=== PATIENT | female | born 1935 | race Asian ===

== ENCOUNTER 2018-07-08 07:01 | Day surgery (SDC) | payer MEDICARE, OTHER ==
[~2018-07-08] VITALS: Ht 157.5 cm; Wt 71.2 kg
[2018-07-08] VITALS (15 sets, daily range): BP systolic 144–164; BP diastolic 63–76; PULSE 54–62; RESP 16–20; Ht 157.5 cm; Wt 71.2 kg
[2018-07-08] MEDS ORDERED: OLME40TA13 PO (07:44)
[2018-07-08] MEDS ORDERED: ASPI81TA52 PO (07:44)
[2018-07-08] MEDS ORDERED: PRAV20TA63 PO (07:48)
[2018-07-08] MEDS ORDERED: EZET10TA31 PO (07:48)
[2018-07-08] MEDS ORDERED: MECL-77 PO (07:49)
[2018-07-08] MEDS ORDERED: MONT10TA24 PO (07:49)
[2018-07-08] MEDS ORDERED: NITR0.4T39 SL (07:49)
[2018-07-08] MEDS ORDERED: ALBU8.5H8 INH (07:50)
[2018-07-08] MEDS ORDERED: DIAZEPAM 5 MG TAB PO SCH (08:00)
[2018-07-08] MEDS ORDERED: SOD CHLORIDE 0.45% 1,000 ML IV SCH (08:00)
[2018-07-08] MEDS ORDERED: FAMOTIDINE 20 MG TAB PO SCH (08:00)
[2018-07-08] MEDS ORDERED: DIPHENHYDRAMINE 50 MG CAP PO SCH (08:00)
[2018-07-08] MEDS ORDERED: FENTAnyl 50 MCG/ML VIAL ONE (09:25)
[2018-07-08] MEDS ORDERED: VERAPAMIL 5 MG INJ ONE (09:25)
[2018-07-08] MEDS ORDERED: HEPARIN 1000 UNITS/ML 10 ML INJ ONE (09:25)
[2018-07-08] MEDS ORDERED: MIDAZOLAM 1 MG/ML 2 ML INJ ONE (09:25)
[2018-07-08] MEDS ORDERED: NITROGLYCERIN (IC) 100 MCG/ML INJ ONE (09:26)
[2018-07-08] MEDS ORDERED: BIVALIRUDIN 250 MG/50 ML NS BAG IVPB ONE (10:20)
[2018-07-08] MEDS ORDERED: ADENOSINE 90 MG INJ ONE (10:20)
[2018-07-08] MEDS ORDERED: IODIXANOL LOCM 100 ML BTL ONE (10:27)
[2018-07-08] MEDS ORDERED: LIDOCAINE 1% (MDV) 20 ML INJ ONE (10:27)
[2018-07-08] MEDS ORDERED: SOD CHLORIDE 0.9% 1,000 ML IV SCH (10:33)
--- NOTE | 2018-07-08 10:33 | SIPON ---
Date/Time of Note Date/Time of Note DATE: 07/08/18 TIME: 10:30 Operative Report Preoperative Diagnosis 1.abnl mpi Postoperative Diagnosis 1.non-obstructive cad Operation/Procedure Performed 1.[facility] 2.[facility] Surgeon see signature line social worker assistant 1.[place]alo Anesthesia: moderate sedation Estimated blood loss: minimal Transfusion Required none Specimen none Grafts/Implants none Complications none MARYLOU FOSTER Jul 08, 2018 10:33
[2018-07-08] MEDS ORDERED: ONDANSETRON 4 MG INJ IV PRN (11:00)
[2018-07-08] MEDS ORDERED: ACETAMINOPHEN 325 MG TAB PO PRN (11:00)
[2018-07-08] MEDS ORDERED: AL HYDROX/MG HYDROX/SIMETH 30 ML CUP PO PRN (11:00)
[2018-07-08] MEDS ORDERED: morphine 2 MG INJ IV PRN (11:00)
--- NOTE | 2018-07-08 17:16 | CARRPT ---
DATE OF PROCEDURE: 07/08/2018 TYPE OF PROCEDURES: 1. Left heart catheterization. 2. Coronary angiography. 3. Measurement of left ventricular end-diastolic pressure. 4. Fractional flow reserve performed in circumflex. 5. Moderate conscious sedation. ATTENDING PHYSICIAN: Marylou Corona MD REFERRING PHYSICIAN: Darrell Bansal MD INDICATION: Chest pain refractory to medical therapy, positive stress test findings for ischemia. TYPE OF ANESTHESIA: Conscious and local. BRIEF HISTORY: Ms. Christianson is an 83-year-old female with history of hypertension, dyslipidemia, no nobstructive coronary artery disease who initially presented with complaints of substernal chest pain . She underwent cardiac stress test revealing positive anterolateral ischemia. Given these findings , the patient was referred for and presents today to undergo left heart catheterization to assess for possibility of significant obstructive coronary disease lending to symptoms of chest pain and positi ve stress test findings. DESCRIPTION OF PROCEDURE: After informed consent was obtained, the patient was brought to the [facility] cardiac catheterization lab where her right radial wrist was prepped and drape d in sterile fashion. A 2% lidocaine was infiltrated into the right radial area in order to achieve adequate anesthesia. Using the modified Seldinger technique, the right radial artery was cannulated and a 6-[place] arterial sheath was placed. A 6-[place] JL3.5 catheter was used to cannulate the left main coronary ostium. With contrast injection, multiple views of left coronary system were obtained. JL3.5 was removed over guidewire and a JR4 was used to cannulate the right coronary arterial ostium . With contrast injection, multiple views of right coronary system were obtained. JR4 was removed o antonio guidewire and a 6-[place] pigtail was passed into the ascending aorta placed in LV. LVEDP was daniela sured, pulled back across the aortic valve to assess for significant gradient, which there was not an d removed. Subsequently, at this time, we moved directly into an interventional procedure. The diana ent already received 5000 units of heparin with a radial cocktail. The patient had a CLS3 guide used to cannulate the left main coronary ostium. A 0.014 pressure guidewire was passed distal to the les ion and circumflex. Initially, we performed IFR from result of 0.98, not consistent with a flow-limi ting lesion and then we performed FFR with 140 mcg/kg per minute of infusion for a total of 3.5 minut es, achieving a level of 0.89, not consistent with flow-limiting lesion. Subsequently at this time, the pressure wire was removed. Followup angiogram was obtained to ensure that no complication occurr ed from this procedure, which had not. Subsequently, the wire was removed. Interventional guide was removed. The patient's sheath was removed. TR band was applied. This completed the procedure. Th ere were no noted complications. FINDINGS: Coronary angiography: Left main is 4 mm, no significant focal stenoses. Circumflex proxi gregoria is 3 mm vessel and its midportion has a 50% to 60% stenosis. The remainder of the circumflex a rtery is free of significant focal stenoses. There is a mid branching obtuse marginal 2.5 mm vessel with no significant focal stenoses. The LAD proximally is a 3 mm vessel and has very mild luminal ir regularities in its midportion up to approximately 20%. Remainder of the LAD is free of significant focal stenoses. There are several proximal and mid branching diagonals, all approximately 2 mm with very mild luminal irregularities up to approximately 10% to 20%. LAD goes around the apex. The righ t coronary proximally is a 3.5 mm vessel and is free of any significant focal stenoses. It is a fiorella nant vessel and therefore gives off a 2.5 mm PDA and a 2 mm posterolateral branch each with no signif icant focal stenoses. Measurement of left ventricular end diastolic pressure is 16. No significant aortic stenosis by grad ient. TOTAL FLUOROSCOPY TIME: 10.4 minutes. TOTAL CONTRAST: 75 mL. IMPRESSION: 1. Moderate nonobstructive coronary artery disease with fractional flow reserve above the limit for flow-limiting lesion. 2. Normal left heart filling pressures, high normal. 3. No significant aortic stenosis by gradient. RECOMMENDATIONS: At this time: 1. We would maximize medical management. 2. Aggressive risk factor reduction. 3. The patient will be readmitted to the same day surgery center for post-cath observation and jayde nued management of symptoms with probable discharge later this afternoon. Dictated By: MARYLOU WHITT/DURAN Conf#: [id number] DID#: [id number]
--- NOTE | 2018-07-08 17:20 | RADRPT ---
Vent Rate: 55 bpm RR Interval: 1092 msec TX Interval: 177 msec QRS Duration: 88 msec QT Interval: 469 msec QTC Interval: 449 msec P-R-T [place]: 54 - -16 - 56 degrees Sinus rhythm...normal P axis, V-rate 50- 99 Borderline left axis deviation...QRS axis (-15,-29) Abnormal R-wave progression, early transition...QRS area>0 in V2 Electronically Signed By: Brock Corona
== END 2018-07-08 14:43 | disposition home or self-care (01) ==
LOC: SDS 07:01
PROVIDERS: ATTEND Internal Medicine
DX: I25.9 Chronic ischemic heart disease, unspecified (principal); I50.30 Unspecified diastolic (congestive) heart failure; I73.9 Peripheral vascular disease, unspecified; I25.10 Atherosclerotic heart disease of native coronary artery without angina pectoris; I10 Essential (primary) hypertension
CPT/HCPCS: 71045; 80053; 80061; 85025; 85610; 85730; 93005; 93458; 93571; C1887; J0153; J0583; J1644; J2250; J3010; Q9967

== ENCOUNTER 2018-09-20 19:48 | Emergency (ER) | payer MEDICARE, OTHER ==
[~2018-09-20] VITALS: Ht 157.5 cm; Wt 71.4 kg
[~2018-09-20 19:48] MED LIST: ALBU8.5H8 INH; ASPI81TA52 PO; EZET10TA31 PO; MECL-77 PO; MONT10TA24 PO; NITR0.4T39 SL; OLME40TA13 PO; PRAV20TA63 PO
[2018-09-20 19:53] VITALS: Ht 157.5 cm; Wt 71.4 kg
--- NOTE | 2018-09-20 20:29 | ERD ---
ER Documentation Chief Complaint Chief Complaint CP X'S 1 DAY, EYE DISCOMFORT X'S 3 DAYS, LOSS OF VISION L EYE TODAY HPI 83-year-old female history of hypertension, hyperlipidemia and nonobstructive coronary artery disease status post recent left heart cath June 2018 presents to the ED for evaluation of vision loss. Patient states she awoke at 4 PM with painless vision loss in her left eye. Also at that time she experienced mild, heaviness in her chest without shortness of breath, nausea, vomiting or diaphoresis that lasted approximately 15 minutes and resolved. Denies headache, neck pain, focal weakness or numbness. No abdominal pain or back pain. No fevers or chills. ROS All systems reviewed and are negative except as per history of present illness. Medications Home Meds Reported Medications Albuterol Sulfate* (Proair HFA*) 8.5 Gm Hfa.aer.ad, 2 PUFF INH Q4H PRN for WHEEZING AND SOB, #1 INHALER 07/08/18 Meclizine Hcl* (Meclizine Hcl*) 25 Mg Tablet, 25 MG PO Q8H PRN for DIZZINESS, TAB 07/08/18 Nitroglycerin* (Nitrostat*) 0.4 Mg Tab.subl, 0.4 MG SL Q5MIN PRN for CHEST PAIN, BOTTLE 07/08/18 Montelukast Sodium* (Montelukast Sodium*) 10 Mg Tablet, 10 MG PO QHS, #30 TAB 07/08/18 Pravastatin Sodium* (Pravastatin Sodium*) 20 Mg Tablet, 20 MG PO HS, TAB 07/08/18 Ezetimibe* (Zetia*) 10 Mg Tablet, 10 MG PO HS, TAB 07/08/18 Olmesartan Medoxomil (Benicar) 40 Mg Tablet, 40 MG PO DAILY, #30 TAB 07/08/18 Aspirin (Low Dose Aspirin) 81 Mg Tablet.dr, 81 MG PO DAILY, #30 TAB 07/08/18 Allergies Allergies: Coded Allergies: No Known Allergy (Unverified , 07/08/18) PMhx/Soc History of Surgery: Yes ([place],l.kneetendon, lumbar fusion,appy, breast sx, bone spur) Anesthesia Reaction: No Hx Neurological Disorder: No Hx Respiratory Disorders: No Hx Cardiac Disorders: Yes (htn, high chol) Hx Psychiatric Problems: No Hx Miscellaneous Medical Probl: No Hx Alcohol Use: No Hx Substance Use: No Hx Tobacco Use: No FmHx No sudden cardiac or stroke Physical Exam Vitals Vital Signs Date Temp Pulse Resp B/P (MAP) Pulse Ox O2 O2 Flow FiO2 Time Delivery Rate 09/20/18 79 20 144/76 98 Room Air 22:34 (98) 09/20/18 97.7 64 18 181/77 97 19:53 (111) Physical Exam Const: Anxious. Moderate distress Head: Atraumatic Eyes: RAYMOND. EOMI. No APD. Visual acuity as documented. OS: Light perception but cannot finger count. IOP 11. ENT: Normal External Ears, Nose and Mouth. Neck: Full range of motion. No Nontender. Carotids 2+ bilaterally. Resp: BS equal and clear to auscultation bilaterally Cardio: Regular rate and rhythm, no murmurs Abd: Soft, non tender, non distended. Normal bowel sounds Skin: No petechiae or rashes Back: No midline or flank tenderness Ext: No cyanosis, or edema Neur: Alert and oriented. CN II -XII intact. Motor strength 4+ bilaterally. Sensory intact. No pronator drift. Plantar reflexes are downgoing. Psych: Cooperative.Anxious but not depressed. Result Diagram: 09/20/18205109/20/182051 Results 24 hrs Laboratory Tests Test 09/20/18 20:52 White Blood Count 6.5 10^3/ul Red Blood Count 4.37 10^6/ul Hemoglobin 13.4 g/dl Hematocrit 40.3 % Mean Corpuscular Volume 92.2 fl Mean Corpuscular Hemoglobin 30.7 pg Mean Corpuscular Hemoglobin Concent 33.3 g/dl Red Cell Distribution Width 12.0 % Platelet Count 193 10^3/UL Mean Platelet Volume 9.7 fl Immature Granulocytes % 0.200 % Neutrophils % 54.0 % Lymphocytes % 32.4 % Monocytes % 11.5 % Eosinophils % 1.4 % Basophils % 0.5 % Nucleated Red Blood Cells % 0.0 /100WBC Immature Granulocytes # 0.010 10^3/ul Neutrophils # 3.5 10^3/ul Lymphocytes # 2.1 10^3/ul Monocytes # 0.8 10^3/ul Eosinophils # 0.1 10^3/ul Basophils # 0.0 10^3/ul Nucleated Red Blood Cells # 0.0 10^3/ul Sodium Level 140 mmol/L Potassium Level 3.7 mmol/L Chloride Level 106 mmol/L Carbon Dioxide Level 26 mmol/L Anion Gap 8 Blood Urea Nitrogen 17 mg/dl Creatinine 0.66 mg/dl Est Glomerular Filtrat Rate mL/min mL/min Glucose Level 138 mg/dl Calcium Level 9.4 mg/dl Troponin I < 0.012 ng/ml Current Medications Medications Dose Sig/Carmencita Start Time Status Last (Trade) Ordered Route PRN Stop Time Admin Dose Reason Admin Proparacaine 1 drop ONCE ONCE 09/20/18 DC HCl LEFT EYE 20:30 (Alcaine 09/20/18 20:31 0.5%) Procedures/MDM DOCUMENTS REVIEWED: ED nurse, prior records including cardiac cath from June 2018 EKG: Time: 1957. Sinus rhythm. Ventricular rate 66, normal [place] and QRS intervals. No acute ST segment elevation or depression. No axis deviation or ectopy. My Interpretation: Normal EKG IMAGING: PROCEDURE: Chest 1 views. CLINICAL INDICATION: Chest pain. TECHNIQUE: Single view of the chest was obtained. COMPARISON: DR CONTRERAS 07/08/2018 FINDINGS: Support lines and tubes: None. Mediastinum: Enlarged heart. Lungs: Elevated right hemidiaphragm. Hyperexpanded lungs. Diffuse interstitial prominence in both lungs. Scattered atelectasis in both lungs. No consolidations. No pneumothorax. Osseous structures: Intact. Osteopenia. Degenerative changes in the shoulders. Other: None. IMPRESSION: Cardiomegaly. Scattered atelectasis in both lungs. Hyperexpanded lungs with diffuse mild interstitial prominence in both lungs. Interstitial prominence could be chronic. Findings could reflect COPD. Elevated right hemidiaphragm. RPTAT: AA .Ian Ruth MD, Date Time Electronically viewed and signed by .Ian Ruth MD, on 09/20/2018 21:18 [employer] MAKIN-year-old female history of hypertension, hyp erlipidemia and nonobstructive coronary artery disease status post recent left heart cath June 2018 presents to the ED for evaluation of vision loss and chest pain. Broad differential for acute, painless visual loss including but not limited to retinal artery occlusion, retinal vein occlusion, ischemic optic neuropathy, vitreous hemorrhage, posterior uveitis and acute maculopathy considered. Patient seen by ophthalmology Dr. Pacheco in the ED and diagnosed with hyphema. Recommends discharge with outpatient follow-up in his office as scheduled. Patient also had a transient episode of chest pain which has resolved. No ischemic EKG changes or elevated troponin. No radiographic evidence of pneumonia or pneumothorax. Exam and work up not consistent w/ ischemia, arrhythmia, PE or dissection. Possible stable angina although GERD and anxiety are also considered. Patient's thoracic symptoms have stabilized while in the department and are stable for outpatient follow up. Stable for d ischarge with precautionary instructions and outpatient follow-up as counseled. Though the patient's latest blood pressure was elevated (>120/80), the patient has a known history of hypertension and urged to pursue adjustment of their medical therapy within a week with their primary care physician. Please refer to the medication reconciliation form for the current list of hypertensive medications. Counseled patient and family regarding diagnostic workup, diagnosis and need for followup. Understands to return to ED if symptoms recur, worsen or any other concerns. Departure Diagnosis: Primary Impression: Acute loss of vision Laterality: left Qualified Codes: H53.132 - Sudden visual loss, left eye Additional Impressions: Hyphema, left eye Stable angina Hypertension Hypertension type: essential hypertension Qualified Codes: I10 - Essential (primary) hypertension Chest pain Chest pain type: unspecified Qualified Codes: R07.9 - Chest pain, unspecified Condition: Stable JOHNSON CABRERA MD Sep 20, 2018 20:28
[2018-09-20] MEDS ORDERED: PROPARACAINE 0.5% 15 ML OPH LEFT EYE ONE (20:30)
[2018-09-20 22:34] VITALS: BP 144/76; PULSE 79; RESP 20
--- NOTE | 2018-09-21 01:41 | CONS ---
DATE OF ADMISSION: 09/20/2018 DATE OF CONSULTATION: 09/20/2018 REASON FOR CONSULTATION: The consultation was initiated from the emergency room because Mrs. Aaron elizondo presented herself with 3 to 4 hours of decreased vision in the left eye. The patient came to the E R after she had taken a nap and noted that her left eye vision has become very blurry. It was very d ifficult for her to see. Therefore, she came to the emergency room with her daughter for evaluation. After she was evaluated by the emergency room physician staff on-call, a call was made to me since this is a patient that I have been following in my clinic. She has history of hypertension and hyper cholesterolemia and history of some coronary artery disease. However, the last catheterization a few months ago showed nonsignificant coronary artery disease which did not need to be stented. Her bloo d pressure has been pretty much under control, according to the daughter, and she takes her medicatio n regularly. She does take baby aspirin; however, over the past day or two, I guess she has been exe rting herself, especially since she does gardening. PHYSICAL EXAMINATION: The patient was found to have a hand motion, count finger vision in the left e ye. The right eye seems to be normal. There was no afferent pupillary defect. The extraocular musc les were intact. The eye pressure was taken with a Robel-Pen and it was 10 and 11, respectively. The re was no afferent pupillary defect noted. The slit lamp examination was essentially normal on the r ight; however, the left eye showed hyphema which was diffuse in the anterior chamber and some swirlin g inferiorly. There were no views to the back of the eye. Then it was decided that the patient can be followed up in my clinic in a couple of days. IMPRESSION 1. Hyphema of the left eye. 2. Pseudophakia. 3. Coronary artery disease. 4. Hypertension. 5. Hypercholesterolemia. RECOMMENDATION: The patient is to be discharged without any medication or eyedrop. The patient is s upposed to elevate the head about 30 to 40 degrees at bedtime or sleep time and avoid any strenuous e xercise, bending over, heavy lifting until patient is seen on Friday in the office. All these instr uctions were given to the daughter and the patient, and they understood the importance of these instr uctions. The patient is to be discharged to home. Dictated By: JOANNE VALDEZ/DURAN Conf#: [id number] DID#: [id number]
== END 2018-09-20 22:34 | disposition home or self-care (01) ==
LOC: E/R 19:48
DX: H53.132 Sudden visual loss, left eye (principal); R07.9 Chest pain, unspecified; H21.02 Hyphema, left eye; I20.0 Unstable angina; I10 Essential (primary) hypertension
CPT/HCPCS: 71045; 80048; 84484; 85025; 93005; 96372